=== PATIENT | male | born 1930 | race Caucasian/White ===

== ENCOUNTER → 2017-04-27 | Outpatient (CLI) | payer MEDICARE, OTHER ==
[~2017-04-27] MED LIST: ARICEPT10 MG PO; ARNUITY ELLIP200 MCG IH; ASPIR 8181 MG PO; CRESTOR20 MG PO; DELTASONE DPS10 MG PO; DELTASONE DPS20 MG PO; DUONEB DPS3 ML IH; FLONASE 0.05% D16 GM NS; GLUCOTROL DPS5 MG PO; LASIX DPS40 MG PO; MICRO-K DPS10 MEQ PO; MIRALAX PACKET17 GM PO; MONTELUKAST SOD10 MG PO; NAMENDA10 MG PO; OMNICEF DPS300 MG PO; PROSCAR DPS5 MG PO; SENOKOT DPS8.6 MG PO; SPIRIVA18 MCG IH; THEOPHYLLINE A300 MG PO; THERA1 EACH PO
== END | disposition home or self-care (01) ==
LOC: RESC 01-25 13:49
DX: J44.9 Chronic obstructive pulmonary disease, unspecified (principal)

== ENCOUNTER 2017-07-18 08:44 | Inpatient (IN) | payer MEDICARE, OTHER ==
[2017-07-23] MEDS ORDERED: MICRO-K DPS10 MEQ PO (17:00)
[2017-07-23] MEDS ORDERED: THEOPHYLLINE A300 MG PO (17:01)
[2017-07-23] MEDS ORDERED: DUONEB DPS3 ML IH (17:01)
[2017-07-23] MEDS ORDERED: CRESTOR20 MG PO (17:02)
[2017-07-23] MEDS ORDERED: ARNUITY ELLIP200 MCG IH (17:02)
[2017-07-23] MEDS ORDERED: MONTELUKAST SOD10 MG PO (17:02)
[2017-07-23] MEDS ORDERED: PROSCAR DPS5 MG PO (17:02)
[2017-07-23] MEDS ORDERED: THERA1 EACH PO (17:03)
[2017-07-23] MEDS ORDERED: ASPIR 8181 MG PO (17:03)
[2017-07-23] MEDS ORDERED: MIRALAX PACKET17 GM PO (17:03)
[2017-07-23] MEDS ORDERED: LASIX DPS40 MG PO (17:03)
[2017-07-23] MEDS ORDERED: SPIRIVA18 MCG IH (17:04)
[2017-07-23] MEDS ORDERED: SENOKOT DPS8.6 MG PO (17:04)
[2017-07-23] MEDS ORDERED: ARICEPT10 MG PO (17:04)
[2017-07-23] MEDS ORDERED: FLONASE 0.05% D16 GM NS (17:05)
[2017-07-23] MEDS ORDERED: GLUCOTROL DPS5 MG PO (17:05)
[2017-07-23] MEDS ORDERED: OMNICEF DPS300 MG PO (17:05)
[2017-07-23] MEDS ORDERED: NAMENDA10 MG PO (17:05)
[2017-07-23] MEDS ORDERED: DELTASONE DPS20 MG PO (17:06)
[2017-07-23] MEDS ORDERED: DELTASONE DPS10 MG PO (17:07)
== END 2017-07-20 14:20 | disposition home or self-care (01) | DRG 190 ==
DX: J44.1 Chronic obstructive pulmonary disease with (acute) exacerbation (principal); J96.01 Acute respiratory failure with hypoxia; F05 Delirium due to known physiological condition; I50.32 Chronic diastolic (congestive) heart failure; F03.90 Unspecified dementia, unspecified severity, without behavioral disturbance, psychotic disturbance, mood disturbance, and anxiety; E09.9 Drug or chemical induced diabetes mellitus without complications; I11.0 Hypertensive heart disease with heart failure; I25.10 Atherosclerotic heart disease of native coronary artery without angina pectoris; M19.90 Unspecified osteoarthritis, unspecified site; E78.5 Hyperlipidemia, unspecified; K21.9 Gastro-esophageal reflux disease without esophagitis; Z87.891 Personal history of nicotine dependence; Z95.3 Presence of xenogenic heart valve